=== PATIENT | male | born 1980 | race Caucasian/White ===

== ENCOUNTER 2021-04-25 13:02 | Emergency (ER) | payer OTHER, SELFPAY ==
[2021-04-25 13:16] VITALS: BP 124/80; PULSE 61; TEMP 36.6; O2SAT 100
--- NOTE | 2021-04-25 13:44 | ED_ITS ---
HPI - Recheck/Abnormal Lab/Rx General Chief Complaint: Recheck/Abnormal Lab/Rx Stated Complaint: Day 3 Rabies Vax Time Seen by Provider: 04/25/21 13:25 Source: patient Mode of arrival: Ambulatory Limitations: no limitations History of Present Illness HPI narrative: Patient here for day 3, 2nd dose of vaccine for rabies. Patient here with family. They were unable to find any other resources for the rabies vaccine. They were seen at [facility] 3 days ago and received day 0, 1st dose of the rabies vaccine as well as the rabies immunoglobulin. They now need to complete day 7 and day 14 after today. No adverse reactions to medications 3 days ago. No trouble breathing. No oral swelling. No rash. No trouble swallowing. Family awoke in the morning with a bat in the home. Related Data Allergies Allergy/AdvReac Type Severity Reaction Status Date / Time hydrocodone [From Vicodin] Allergy Severe Hives Verified 04/25/21 13:16 Review of Systems Review of Systems Narrative: GENERAL: Denies chills, fatigue, malaise, fever, sweats. HEENT: Denies sinus pain, ear pain, sore throat RESPIRATORY: Denies dyspnea, cough CARDIOVASCULAR: Denies chest pain, palpitations GASTROINTESTINAL: Denies nausea, vomiting, abdominal pain : Denies dysuria, frequency, hematuria MUSCULOSKELETAL: denies muscle or bony pain SKIN: Denies rash, skin lesions NEUROLOGIC: Denies weakness, numbness ROS Unobtainable: All systems reviewed & are unremarkable except as noted in HPI and below Patient History Social History Smoking Status: Current every day smoker Smoking Status: Current every day smoker alcohol intake frequency: 0-2 drinks per day Substance Use Type: marijuana Exam Narrative Exam Narrative: GENERAL: in no distress, not toxic not dyspneic HEAD: Normocephalic. EYES: Pupils equal round No scleral icterus. No injection no discharge ENT: Mucous membranes moist. NECK: Trachea midline. CARDIOVASCULAR: Regular rate and rhythm without murmurs RESPIRATORY: Clear to auscultation. Breath sounds equal bilaterally. No wheezes, rales, or rhonchi. EXTREMITIES: No gross deformities. BACK: No flank tenderness. NEURO: AOx4. SKIN: Warm and dry PSYCH: Not anxious, is cooperative Initial Vital Signs Initial Vital Signs: Vital Signs Temperature 98 F 04/25/21 13:16 Pulse Rate 61 04/25/21 13:16 Blood Pressure 124/80 04/25/21 13:16 Pulse Oximetry 100 04/25/21 13:16 Course Course Course Narrative: No new issues during course of stay. Orders Ordered: Discontinued Medications Rabies Vaccine (Rabies Vaccine (Rabavert) 2.5 Units Syringe) 2.5 units IM .ONCE ONE Stop: 04/25/21 13:40 Last Admin: 04/25/21 14:00 Dose: 2.5 units Documented by: CHANTE Reevaluation(s) Reevaluation #1: No allergic reaction to vaccine at time of discharge Vital Signs Vital signs: Vital Signs - 8 hr 04/25/21 13:16 Temperature 98 F Pulse Rate 61 Blood Pressure 124/80 Pulse Oximetry 100 MDM - Recheck/Abnormal Lab/Rx Differential Diagnosis Differential diagnosis: Likely other (Here for day 3, 2nd dose of rabies vaccine) MDM Narrative Medical decision making narrative: Appropriate for discharge home. Patient here only for 2nd dose of rabies vaccine Discharge Plan Departure Patient Disposition: Home Clinical Impression: Medication administered Instructions: DI for Rabies Vaccine Activity Restrictions/Additional Instructions: Return if any trouble breathing or rash or trouble swallowing or any concerns or questions. Be sure to have your day 7 rabies vaccine given as well as the following day 14.
[2021-04-25] MEDS: RABIES VACCINE (RABAVERT) 2.5 UNITS SYRINGE IM (14:00)
== END 2021-04-25 14:27 | disposition home or self-care (01) ==
PROVIDERS: Emergency Provider Emergency Medicine
DX: Z23 Encounter for immunization (principal)
CPT/HCPCS: 90471; 90675; 99283

== ENCOUNTER 2021-04-29 08:42 | Emergency (ER) | payer OTHER, SELFPAY ==
--- NOTE | 2021-04-29 09:05 | ED.GENADULT ---
HPI - General Adult General Chief complaint: Recheck/Abnormal Lab/Rx Stated complaint: 3rd dose pep treatment Time Seen by Provider: 04/29/21 08:54 Source: patient Mode of arrival: Family Vehicle History of Present Illness HPI narrative: His family for day 7 of their rabies vaccination series. Patient family awoke with a bat in the home the patient, spouse as well as child are all here. They have received the initial series appropriately and were expected today. Patient has not had any issues, symptoms or reactions to the vaccine. No major medical issues. Only allergy is to Vicodin. Related Data Allergies Allergy/AdvReac Type Severity Reaction Status Date / Time hydrocodone [From Vicodin] Allergy Severe Hives Verified 04/29/21 08:58 Review of Systems Review of Systems ROS Unobtainable: All systems reviewed & are unremarkable except as noted in HPI and below Patient History Social History Smoking Status: Current every day smoker Smoking Status: Current every day smoker alcohol intake frequency: 0-2 drinks per day Substance Use Type: marijuana Exam Narrative Exam Narrative: GENERAL: Alert and oriented x three, well-appearing male in no acute distress. HEENT: Head normocephalic, atraumatic, EOMI, pupils reactive, face symmetric, moist mucous membranes NECK: Supple, full range of motion CARDIOVASCULAR: Regular rate and rhythm without murmurs, rubs or gallops. RESPIRATORY: Breath sounds equal bilaterally, no wheezes rales or rhonchi. ABDOMEN: Soft, nontender. Normoactive bowel sounds all 4 quadrants. No guarding or rebound, rigidity, no mass EXTREMITIES: Normal range of motion NEUROLOGICAL: Cranial nerves II through XII grossly intact. Normal gait. SKIN: Warm, dry, no petechiae, no rashes or lesions. Initial Vital Signs Initial Vital Signs: Vital Signs Temperature 98.2 F 04/29/21 09:06 Pulse Rate 68 04/29/21 09:06 Respiratory Rate 19 04/29/21 09:06 Blood Pressure 128/83 04/29/21 09:06 Pulse Oximetry 98 04/29/21 09:06 Course Orders Ordered: Discontinued Medications Rabies Vaccine (Rabies Vaccine (Rabavert) 2.5 Units Syringe) 2.5 units IM .ONCE ONE Stop: 04/29/21 08:56 Last Admin: 04/29/21 09:18 Dose: 2.5 units Documented by: COSMO Discharge Plan Departure Patient Disposition: Home Clinical Impression: Encounter for repeat administration of rabies vaccination Instructions: DI for Rabies Vaccine Activity Restrictions/Additional Instructions: Please return for day 14 for your rabies vaccination.? ? Return if you have any trouble breathing, rash, difficulty swallowing, swelling of the face, airway, rashes or hives, persistent vomiting or diarrhea or other new or concerning symptoms.
[2021-04-29 09:06] VITALS: BP 128/83; PULSE 68; RESP 19; TEMP 36.8; O2SAT 98
[2021-04-29] MEDS: RABIES VACCINE (RABAVERT) 2.5 UNITS SYRINGE IM (09:18)
== END 2021-04-29 09:34 | disposition home or self-care (01) ==
PROVIDERS: Emergency Provider Emergency Medicine
DX: Z23 Encounter for immunization (principal)
CPT/HCPCS: 90471; 90675; 99283

== ENCOUNTER 2021-05-06 09:22 | Emergency (ER) | payer OTHER, SELFPAY ==
[2021-05-06 09:30] VITALS: BP 118/71; PULSE 78; RESP 18; TEMP 36.6; O2SAT 98; BMI 21.8
[2021-05-06] MEDS: RABIES VACCINE (RABAVERT) 2.5 UNITS SYRINGE IM (10:08)
--- NOTE | 2021-05-06 10:32 | ED.RECABL ---
HPI - Recheck/Abnormal Lab/Rx General Chief Complaint: Recheck/Abnormal Lab/Rx Stated Complaint: 4th pep treatment Time Seen by Provider: 05/06/21 09:49 Source: patient Mode of arrival: Ambulatory History of Present Illness HPI narrative: Patient is a 41-year-old male who is here for his day 14 post exposure rabies prophylaxis immunization. He did have some chills and fevers after his last vaccine otherwise no other reactions. Currently has no symptoms. Related Data Allergies Allergy/AdvReac Type Severity Reaction Status Date / Time hydrocodone [From Vicodin] Allergy Severe Hives Verified 04/29/21 08:58 Review of Systems Review of Systems Narrative: Patient currently has no symptoms Patient History Medical History Healthy adult Social History Smoking Status: Current every day smoker Smoking Status: Current every day smoker alcohol intake frequency: 0-2 drinks per day Substance Use Type: marijuana Exam Initial Vital Signs Initial Vital Signs: Vital Signs Temperature 98 F 05/06/21 09:30 Pulse Rate 78 05/06/21 09:30 Respiratory Rate 18 05/06/21 09:30 Blood Pressure 118/71 05/06/21 09:30 Pulse Oximetry 98 05/06/21 09:30 Resp Effort & Inspection: normal respiratory effort Cardio Rate: regular rate Neuro General: patient alert and patient awake Course Orders Ordered: Discontinued Medications Rabies Vaccine (Rabies Vaccine (Rabavert) 2.5 Units Syringe) 2.5 units IM .ONCE ONE Stop: 05/06/21 09:52 Last Admin: 05/06/21 10:08 Dose: 2.5 units Documented by: COSMO Vital Signs Vital signs: Vital Signs - 8 hr 05/06/21 09:30 Temperature 98 F Pulse Rate 78 Respiratory Rate 18 Blood Pressure 118/71 Pulse Oximetry 98 MDM - Recheck/Abnormal Lab/Rx MDM Narrative Medical decision making narrative: That should be the last immunization needed in the post exposure rabies prophylaxis treatment. Patient was given immunizations without incident Discharge Plan Departure Patient Disposition: Home Clinical Impression: Medication administered, Encounter for repeat administration of rabies vaccination Activity Restrictions/Additional Instructions: That should be the last immunization in the post exposure prophylaxis for rabies treatment. I recommend that you contact [phone]. This is the health resource was coordinator here at the hospital who can help you establish a primary provider. Return to the emergency department for any new worsening symptoms.
[2021-05-06 10:49] VITALS: BP 111/63; PULSE 77; RESP 20; O2SAT 100
== END 2021-05-06 10:51 | disposition home or self-care (01) ==
PROVIDERS: Emergency Provider Emergency Medicine
DX: Z20.3 Contact with and (suspected) exposure to rabies (principal); Z23 Encounter for immunization
CPT/HCPCS: 90471; 90675; 99283